=== PATIENT | male | born 1980 | race Caucasian/White ===

== ENCOUNTER → 2021-07-31 | Outpatient (CLI) | payer OTHER ==
[~2021-07-31] MED LIST: ARMOUR THYROID90 MG PO; ASMANEX220 MC1 INH; ASPIRIN EC325 MG PO; AUGMENTIN 875-1 EACH PO; COLESTID1 GM PO; ELAVIL 50 MG TA50 MG PO; FLAGYL500 MG PO; LEVAQUIN500 MG PO; LOPRESSOR100 MG PO; NEXIUM40 MG PO; OMEGA-3 KRILL1 EAC3 PO; TRILIPIX135 MG PO; VITAMIN B12-FO1 EACH PO; VITAMIN D2000 UNI1 PO; XYZAL5 MG PO; ZOFRAN 4 MG TAB4 MG PO
== END ==
LOC: KOH-I 12:24
DX: M54.16 Radiculopathy, lumbar region (principal)
CPT/HCPCS: 72100

== ENCOUNTER → 2021-11-06 | Outpatient (CLI) | payer OTHER | LOC: LAB 10:40 | DX: B34.9 Viral infection, unspecified (principal); Z20.822 Contact with and (suspected) exposure to COVID-19 | CPT/HCPCS: U0002 ==